=== PATIENT | female | born 1950 | race Caucasian/White ===

== ENCOUNTER 2022-05-22 13:53 | Outpatient (CLI) | payer MEDICARE, BC, SELFPAY ==
--- NOTE | 2022-05-22 14:00 | CRLHL7_ITS ---
For Patients: As a result of the Century Cures Act, medical imaging exams and procedure reports are released immediately into your electronic medical record. You may view this report before your referring provider. If you have questions, please contact your health care provider. BILATERAL SCREENING MAMMOGRAM WITH COMPUTER-AIDED DETECTION AND TOMOSYNTHESIS TECHNIQUE: CC and MLO views were obtained. These mammographic images have been obtained using full-field digital technique. These mammographic images were interpreted with the benefit of computer-aided detection. Breast Tomosynthesis was used in this interpretation. COMPARISON FILM: 04/12/21, 04/05/20, 10/15/18. FINDINGS: The breasts are heterogeneously dense, which may obscure small masses IMPRESSION: There is no radiographic evidence for malignancy. ASSESSMENT: BI-RADS Category 2: Benign RECOMMENDATION: Routine screening mammogram in 1 year. A lay language report of this examination will be provided to the patient. Isma Robert M.D. Diagnostic Radiologist [email or web address] ARTEMIO/Dictated by: Isma Robert MD @ 05/23/2022 9:17:00 AM (Electronically Signed)
== END 2022-05-22 13:54 | disposition home or self-care (01) ==
LOC: MAMMO 13:58
PROVIDERS: PCP Family Medicine; Visit Provider Family Medicine
DX: Z12.31 Encounter for screening mammogram for malignant neoplasm of breast (principal); R92.2 Inconclusive mammogram
CPT/HCPCS: 77063; 77067

== ENCOUNTER 2023-02-19 07:53 | Outpatient (CLI) | payer MEDICARE, BC, SELFPAY | END 2023-02-19 07:54 | disposition home or self-care (01) | LOC: NFLDREF 02-20 07:02 | PROVIDERS: PCP Family Medicine; Referring Provider Family Medicine; Visit Provider Family Medicine | DX: E03.9 Hypothyroidism, unspecified (principal); E78.5 Hyperlipidemia, unspecified; I10 Essential (primary) hypertension; M85.80 Other specified disorders of bone density and structure, unspecified site | CPT/HCPCS: 80053; 80061; 82306; 84443 ==

== ENCOUNTER 2023-05-21 07:51 | Outpatient (CLI) | payer MEDICARE, BC, SELFPAY | END 2023-05-21 07:52 | disposition home or self-care (01) | LOC: NFLDREF 05-22 01:33 | PROVIDERS: PCP Family Medicine; Referring Provider Family Medicine; Visit Provider Family Medicine | DX: E78.5 Hyperlipidemia, unspecified (principal) | CPT/HCPCS: 80061 ==

== ENCOUNTER 2023-05-23 08:07 | Outpatient (CLI) | payer MEDICARE, BC, SELFPAY ==
--- NOTE | 2023-05-23 08:15 | CRLHL7_ITS ---
For Patients: As a result of the Century Cures Act, medical imaging exams and procedure reports are released immediately into your electronic medical record. You may view this report before your referring provider. If you have questions, please contact your health care provider. BILATERAL SCREENING MAMMOGRAM WITH COMPUTER-AIDED DETECTION AND TOMOSYNTHESIS TECHNIQUE: CC and MLO views were obtained. These mammographic images have been obtained using full-field digital technique. These mammographic images were interpreted with the benefit of computer-aided detection. Breast Tomosynthesis was used in this interpretation. COMPARISON FILM: 05/22/22, 04/12/21, 04/05/20. FINDINGS: The breasts are heterogeneously dense, which may obscure small masses IMPRESSION: There is no radiographic evidence for malignancy. ASSESSMENT: BI-RADS Category 1: Negative RECOMMENDATION: Routine screening mammogram in 1 year. A lay language report of this examination will be provided to the patient. Isma Robert M.D. Diagnostic Radiologist [email or web address] ARTEMIO/Dictated by: Isma Robert MD @ 05/23/2023 9:48:00 AM (Electronically Signed)
== END 2023-05-23 08:08 | disposition home or self-care (01) ==
LOC: MAMMO 08:08
PROVIDERS: PCP Family Medicine; Visit Provider Family Medicine
DX: Z12.31 Encounter for screening mammogram for malignant neoplasm of breast (principal); R92.2 Inconclusive mammogram
CPT/HCPCS: 77063; 77067

== ENCOUNTER 2024-05-25 07:53 | Outpatient (CLI) | payer MEDICARE, BC, SELFPAY ==
--- OUTSIDE RECORDS SUMMARY | 2024-05-27 17:05 | XMS_ITS | Clinical Summary ---
Author Organization [facility] Address [place], [place] [address] Care Team Providers Care Pcb Designer Name Role Phone Dana Sims MD Primary Care Provider + Allergies Active Allergy Reactions Criticality Noted Date Comments Avocado *Unknown 07/20/2021 Pt denies allergy Banana *Unknown 07/20/2021 Pt denies allergy Kiwi *Unknown 07/20/2021 Pt denies allergy Medications Medication Sig Dispensed Refills Start Date End Date Status melatonin 5 mg capsule Take 5 mg by mouth at bedtime. Active acetaminophen/diphenhy dramine (TYLENOL PM ORAL) Take 2 Tablets by mouth at bedtime if needed. Active levothyroxine (SYNTHROID) 75 mcg tablet Take 75 mcg by mouth before breakfast. Active chlorthalidone (HYGROTON) 25 mg tablet Take 25 mg by mouth once daily. Active Active Problems No known active problems Social History Tobacco Use Types Packs/Day Years Used Date Smoking Tobacco: Never Smokeless Tobacco: Never Alcohol Use Standard Drinks/Week Comments Not Currently 0 (1 standard drink = 0.6 oz pur e alcohol) Sex and Gender Information Value Date Recorded Sex Assigned at Not on file Gender Identity Not on file Sexual Orientation Not on file Obstetrics History Last Filed Vital Signs Vital Sign Reading Time Taken Comments Blood Pressure 139/59 07/20/2021 2:41 PM COMMUNITY RELATIONS ADVISOR Pulse 55 07/20/2021 2:41 PM COMMUNITY RELATIONS ADVISOR Temperature 36.2 ??C (97.2 ??F) 07/20/2021 10:[address] Respiratory Rate 14 07/20/2021 2:41 PM COMMUNITY RELATIONS ADVISOR Oxygen Saturation 99% 07/20/2021 2:41 PM COMMUNITY RELATIONS ADVISOR Inhaled Oxygen Concentration - - Weight 80.7 kg (178 lb) 07/20/2021 7:00 AM COMMUNITY RELATIONS ADVISOR Height 163 cm (5' 4.17) 07/20/2021 7:00 AM COMMUNITY RELATIONS ADVISOR Body Mass Index 30.39 07/20/2021 7:00 AM COMMUNITY RELATIONS ADVISOR Plan of Treatment Health Maintenance Due Date Last Done Comments Tdap 1962 Depression screening for age 12+ 1963 BMI (ht and wt on same day) for age 18+ 1969 Hepatitis C screening for age 18-79 1969 Tetanus booster 1971 Colonoscopy through age 75 1996 Lipids for age 45-75 1996 Zoster (shingles) series for age 50+ (1 of 2) 2001 Mammogram for age 45-75 04/21/2016 04/21/2015 DEXA/DXA scan for age 65+ 2016 Pneumococcal series for age 65+ (1 of 1 - PCV) 2016 COVID-19 vaccine series ( season) 2024 12/02/2020, 11/04/2020 Influenza for age 65+ 05/10/2024 Procedures Procedure Name Priority Date/Time Associated Diagnosis Comments SCAN-MAMMOGRAPHY REPORT 04/21/2015 12:00 PM CDT from Last 3 Months or Most Recently Relevant to Health Maintenance Results * SCAN-MAMMOGRAPHY REPORT (04/21/2015 12:00 PM CDT) Anatomical Region Laterality Modality Other Scanner OTHER from Last 3 Months or Most Recently Relevant to Health Maintenance Care Teams Pcb Designer Relationship Specialty Start Date End Date Dana Sims MD [address] [place] [address] PCP - General Family Practice 07/11/21
== END 2024-05-25 07:54 | disposition home or self-care (01) ==
LOC: NFLDREF 05-27 17:03
PROVIDERS: PCP Family Medicine; Referring Provider Family Medicine; Visit Provider Family Medicine
DX: E78.5 Hyperlipidemia, unspecified (principal); E03.9 Hypothyroidism, unspecified; I10 Essential (primary) hypertension; M85.89 Other specified disorders of bone density and structure, multiple sites; M81.0 Age-related osteoporosis without current pathological fracture
CPT/HCPCS: 80053; 80061; 82306; 84443

== ENCOUNTER 2024-06-24 08:45 | Outpatient (CLI) | payer MEDICARE, BC, SELFPAY ==
--- OUTSIDE RECORDS SUMMARY | 2024-06-24 08:50 | XMS_ITS | Clinical Summary ---
Author Organization [facility] Address [place], [place] [address] Care Team Providers Care Applier Name Role Phone Dana Sims MD Primary [...] Comments Blood Pressure 139/59 07/20/2021 2:41 PM AIR CONDITIONING SPECIALIST Pulse 55 07/20/2021 2:41 PM AIR CONDITIONING SPECIALIST Temperature 36.2 ??C (97.2 ??F) 07/20/2021 10:[address] Respiratory Rate 14 07/20/2021 2:41 PM AIR CONDITIONING SPECIALIST Oxygen Saturation 99% 07/20/2021 2:41 PM AIR CONDITIONING SPECIALIST Inhaled Oxygen Concentration - - Weight 80.7 kg (178 lb) 07/20/2021 7:00 AM AIR CONDITIONING SPECIALIST Height 163 cm (5' 4.17) 07/20/2021 7:00 AM AIR CONDITIONING SPECIALIST Body Mass Index 30.39 07/20/2021 7:00 AM AIR CONDITIONING SPECIALIST Plan of Treatment Health Maintenance Due Date [...] Recently Relevant to Health Maintenance Care Teams Applier Relationship Specialty Start Date End Date Dana Sims MD [address] [place] [address] PCP - General Family Practice 07/11/21
--- NOTE | 2024-06-24 09:00 | CRLHL7_ITS ---
For Patients: As a result of the Century Cures Act, medical imaging exams and procedure reports are released immediately into your electronic medical record. You may view this report before your referring provider. If you have questions, please contact your health care provider. DXA BONE MINERAL DENSITY STUDY Reason for exam: Follow-up osteopenia. Current height (in): 65. Weight (lb): 170. Menopause age: 59. Ethnicity: White. 1. Have you had a previous hip or vertebral fracture? No. 2. Have you had any fractures during your adult life which did not result from significant trauma (e.g., auto accident)? No. 3. Did either of your parents have a hip fracture? No. 4. Do you smoke? No. 5. Have you ever taken Glucocorticoids? No. 6. Do you have rheumatoid arthritis? No. 7. Do you have secondary osteoporosis? No. 8. Do you drink 3 or more alcoholic drinks per day? No. 9. Are you being treated for osteoporosis? No. 10. Have you ever taken any of the following medications: Actonel, Evista, Fosamax, Miacalcin, Reclast, Boniva, Forteo, HRT (i.e., estrogen/hormone therapy), Protelos, Prolia, Vitamin D, Calcium, other ??? please specify. ANSWER: Yes, vitamin D. 11. Do you have any of the following medical conditions: Anorexia or bulimia, asthma or emphysema, end stage renal disease, hyperparathyroidism, any seizure disorders, cancer, inflammatory bowel diseases, hysterectomy, other ??? please specify. ANSWER: No. 12. What was your maximum height (inches)? 66. 13. Do you perform weight bearing exercise regularly? No. 14. Do you regularly consume dairy products? Yes. 15. Do you drink caffeinated beverages? Yes. 16. At what age did your period start? 15. 17. Are you premenopausal? No. 18. How many full-term pregnancies have you had? 3. 19. Have you ever missed your period for more than 6 months in a row (not including or menopause)? No. TECHNIQUE: Bone mineral density study was performed using the [employer]. FINDINGS: The results of the study expressed as bone mineral density (BMD) are as follows: Lumbar spine L1 to L4: BMD: 0.834 g/cm2. T-score: -1.9. Z-score: 0.3 Neck Left: BMD: 0.644 g/cm2. T-score: -1.8. Z-score: 0.1 Right: BMD: 0.637 g/cm2. T-score: -1.9. Z-score: 0.0 Total Left: BMD: 0.805 g/cm2. T-score: -1.1. Z-score: 0.5 Right: BMD: 0.728 g/cm2. T-score: -1.8. Z-score: -0.1 IMPRESSION: Osteopenia. *Comparison exams done prior to 02/2020 were performed on different unit, Xeround. COMPARISON: Compared with scan of 03/30/2021, the bone mineral density has increased by 6.5 percent at the spine and decreased by 1.3 percent at the hip. Compared with scan of 09/10/2016, the bone mineral density has increased by 1.0 percent at the spine and increased by 1.0 percent at the hip. FRAX 10-year Fracture Risk Major Osteoporotic Fracture: 12% Hip Fracture: 2.3% Reported Risk Factors: [place] () Neck BMD=0.637, BMI=28.3 ART HENDERSON M.D. Transcribed: 3:12 p.m. [email or web address] jj/Dictated by: Art Henderson MD @ 06/26/2024 9:47:00 AM (Electronically Signed)
--- NOTE | 2024-06-24 09:45 | CRLHL7_ITS ---
For Patients: As a result of the Cures Act, medical imaging exams and procedure reports are released immediately into your electronic medical record. You may view this report before your referring provider. If you have questions, please contact your health care provider. BILATERAL SCREENING MAMMOGRAM WITH COMPUTER-AIDED DETECTION AND TOMOSYNTHESIS TECHNIQUE: CC and MLO views were obtained. These mammographic images have been obtained using full-field digital technique. These mammographic images were interpreted with the benefit of computer-aided detection. Breast Tomosynthesis was used in this interpretation. COMPARISON FILM: 05/23/23, 05/22/22, 04/12/21. FINDINGS: There are scattered areas of fibroglandular density IMPRESSION: There is no radiographic evidence for malignancy. ASSESSMENT: BI-RADS Category 2: Benign RECOMMENDATION: Routine screening mammogram in 1 year. A lay language report of this examination will be provided to the patient. Isma Robert M.D. Diagnostic Radiologist [email or web address] [email or web address] Transcribed: 2:50 p.mTerra chandler/Dictated by: Isma Robert MD @ 06/30/2024 9:19:00 AM (Electronically Signed)
== END 2024-06-24 08:46 | disposition home or self-care (01) ==
LOC: RAD 08:46
PROVIDERS: PCP Family Medicine; Visit Provider Family Medicine
DX: Z12.31 Encounter for screening mammogram for malignant neoplasm of breast (principal); M85.89 Other specified disorders of bone density and structure, multiple sites
CPT/HCPCS: 77063; 77067; 77080

== ENCOUNTER 2024-11-21 09:47 | Outpatient (CLI) | payer MEDICARE, BC, SELFPAY ==
[2024-11-26 15:48] LABS: Varicella-Zoster Virus Source Vesicle; Varicella-Zoster Virus by PCR Not Detected
== END 2024-11-21 09:48 | disposition home or self-care (01) ==
PROVIDERS: PCP Family Medicine; Visit Provider Nurse Practitioner
DX: S90.821A Blister (nonthermal), right foot, initial encounter (principal)
CPT/HCPCS: 86787

== ENCOUNTER 2025-06-23 08:16 | Outpatient (CLI) | payer MEDICARE, BC, SELFPAY | END 2025-06-23 08:17 | disposition home or self-care (01) | LOC: NFLDREF 06-25 09:36 | PROVIDERS: PCP Family Medicine; Referring Provider Family Medicine; Visit Provider Family Medicine | DX: I10 Essential (primary) hypertension (principal); E03.9 Hypothyroidism, unspecified; E78.5 Hyperlipidemia, unspecified; M85.89 Other specified disorders of bone density and structure, multiple sites | CPT/HCPCS: 80053; 80061; 82306; 84443 ==

== ENCOUNTER 2025-06-25 09:34 | Outpatient (CLI) | payer MEDICARE, BC, SELFPAY ==
--- NOTE | 2025-06-25 09:45 | CRLHL7_ITS ---
For Patients: As a result of the Century Cures Act, medical imaging exams and procedure reports are released immediately into your electronic medical record. You may view this report before your referring provider. If you have questions, please contact your health care provider. INDICATION: BILATERAL SCREENING MAMMOGRAM, ASYMPTOMATIC 74 Y/O FEMALE COMPARISON: 06/24/2024, 05/23/2023, 05/22/2022 TECHNIQUE: Digital mammogram in CC and MLO projections including computer-aided detection (CAD) and tomosynthesis. BREAST COMPOSITION: There are scattered areas of fibroglandular density. FINDINGS: No suspicious findings. ASSESSMENT: BI-RADS 1 Negative RECOMMENDATION: Annual screening mammogram. A lay language report of this examination will be provided to the patient. Dictated by: Isma Robert MD @ 06/28/2025 09:18:49 (Electronically Signed)
== END 2025-06-25 09:35 | disposition home or self-care (01) ==
LOC: MAMMO 09:35
PROVIDERS: PCP Family Medicine; Visit Provider Family Medicine
DX: Z12.31 Encounter for screening mammogram for malignant neoplasm of breast (principal)
CPT/HCPCS: 77063; 77067